=== PATIENT | male | born 1985 | race Caucasian/White ===

== ENCOUNTER 2017-09-20 16:26 | Emergency (ER) | payer OTHER ==
--- NOTE | 2017-09-20 16:30 | EDM.PDOC ---
ED HPI GENERAL MEDICAL PROBLEM - General Stated Complaint: PT FELL AT WORK Time Seen by Provider: 09/20/17 16:28 - History of Present Illness INITIAL COMMENTS - FREE TEXT/NARRATIVE: HISTORY AND PHYSICAL: History of present illness: Patient 31-year-old male presents status post fall proximally 1014 feet he sustained multiple abrasions contusions with a chief complaint of abrasion to his left forehead and right shoulder injury. He denies loss of consciousness denies chest or abdominal pain or trauma or other concern. Review of systems: As per history of present illness and below otherwise all systems reviewed and negative. Past medical history: As per history of present illness and as reviewed below otherwise noncontributory. Surgical history: As per history of present illness and as reviewed below otherwise noncontributory. Social history: No reported history of drug or alcohol abuse. Family history: As per history of present illness and as reviewed below otherwise noncontributory. Physical exam: HEENT: Abrasion contusion with small hematoma noted left forehead, normocephalic , pupils reactive, negative for conjunctival pallor or scleral icterus, mucous membranes moist, throat clear, neck supple, nontender, trachea midline. Lungs: Clear to auscultation, breath sounds equal bilaterally, chest nontender. Heart: S1S2, regular, negative for clicks, rubs, or JVD. Abdomen: Soft, nondistended, nontender. Negative for masses or hepatosplenomegaly. Negative for costovertebral tenderness. Pelvis: Stable nontender. Genitourinary: Deferred. Rectal: Deferred. Extremities :right shoulder with pain to palpation is no crepitation or point tenderness is limited range of motion secondary to pain left knee has minor abrasion no point tenderness crepitation swelling is full range motion CMS neurovascular are unremarkable throughout otherwise Neuro: Awake, alert, oriented. Cranial nerves II through XII unremarkable. Cerebellum unremarkable. Motor and sensory unremarkable throughout. Exam nonfocal. Diagnostics: X-ray right shoulder chest CT brain Therapeutics: None Impression: #1 status post fall #2 head injury with abrasion/contusion #3 acute right shoulder number for multiple abrasions/contusions Definitive disposition and diagnosis as appropriate pending reevaluation and review of above. - Related Data Allergies Allergy/AdvReac Type Severity Reaction Status Date / Time No Known Allergies Allergy Verified 09/20/17 16:36 Home Meds: Home Meds . [No Known Home Meds] 09/20/17 [History] ED ROS GENERAL - Review of Systems Review Of Systems: ROS reveals no pertinent complaints other than HPI. ED EXAM, GENERAL - Physical Exam Exam: See Below (See dictation) Course - Vital Signs Last Recorded V/S: Last Vital Signs Temp 37.4 C 09/20/17 16:26 Pulse 94 09/20/17 16:26 Resp 18 09/20/17 16:26 BP 134/76 09/20/17 16:26 Pulse Ox 98 09/20/17 16:26 - Orders/Labs/Meds Orders: Active Orders 24 hr Category Date Time Status Chest 1V Frontal [CR] Routine Exams 09/20/17 Taken Head wo Cont [CT] Routine Exams 09/20/17 Taken Shoulder Comp Rt [CR] Routine Exams 09/20/17 Taken Departure - Departure Time of Disposition: 17:51 Disposition: Home, Self-Care 01 Condition: Good Clinical Impression: Contusion, Fall, Head injury, Shoulder injury - Discharge Information Additional Instructions: The following information is given to patients seen in the emergency department who are being discharged to home. This information is to outline your options for follow-up care. We provide all patients seen in our emergency department with a follow-up referral. The need for follow-up, as well as the timing and circumstances, are variable depending upon the specifics of your emergency department visit. If you don't have a primary care physician on staff, we will provide you with a referral. We always advise you to contact your personal physician following an emergency department visit to inform them of the circumstance of the visit and for follow-up with them and/or the need for any referrals to a consulting specialist. The emergency department will also refer you to a specialist when appropriate. This referral assures that you have the opportunity for followup care with a specialist. All of these measure are taken in an effort to provide you with optimal care, which includes your followup. Under all circumstances we always encourage you to contact your private physician who remains a resource for coordinating your care. When calling for followup care, please make the office aware that this follow-up is from your recent emergency room visit. If for any reason you are refused follow-up, please contact the [facility] emergency department at and asked to speak to the emergency department charge nurse. Sling as directed Motrin/Tylenol as directed follow-up primary medical doctor return as needed as discussed
--- NOTE | 2017-09-22 11:48 | CT ---
EXAM DATE: 09/20/17 PATIENT'S AGE: 31 Patient: LEDA ROUSE Facility: [place], [place] Site . Site : 1985 Study: CT Head [id number]/21/2018 4:51:45 PM Ordering Physician: Doctor Moody Final Report: INDICATION: Fall from greater than 10 feet. TECHNIQUE: CT head without IV contrast. FINDINGS: Mild focal soft tissue swelling and hematoma in the frontal scalp bilaterally in 2 locations. No skull fracture. Minimal mucosal thickening in the upper left maxillary sinus. No intracranial hemorrhage, edema, or mass-effect. Venous sinuses intracranially are denser than typical possibly related to dehydration. Minimal cerebellar atrophy. Remainder negative. IMPRESSION: 1. No acute intracranial disease. 2. Bilateral areas of soft tissue swelling and mild hematoma in the frontal scalp. Please note that all CT scans at this facility use dose modulation, iterative reconstruction, and/or weight-based dosing when appropriate to reduce radiation dose to as low as reasonably achievable. Dictated by Vijay Pitts MD @ Sep 20 2017 4:55PM (Electronic Signature) Report Signed by Proxy. [facility]
--- NOTE | 2017-09-22 11:49 | CR ---
EXAM DATE: 09/20/17 PATIENT'S AGE: 31 Patient: LEDA ROUSE Facility: [place], [place] Site . 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 TECHNIQUE: AP portable chest x-ray. FINDINGS: Heart size normal. Mediastinum normal. Lungs clear without infiltrate. Subtle irregularity with possible lucency involving the left 11th and 12th ribs posteriorly may be artifactual however if there is concern for rib fractures dedicated rib views could be performed if there is concern in this region. Remainder negative. Dictated by Vijay Pitts MD @ Sep 20 2017 5:00PM (Electronic Signature) Report Signed by Proxy. [facility]
--- NOTE | 2017-09-22 11:50 | CR ---
EXAM DATE: 09/20/17 PATIENT'S AGE: 31 Patient: LEAD ROUSE Facility: [place], [place] Site . 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 FINDINGS: No fracture or dislocation in right shoulder. Cannot exclude some soft tissue swelling in the right shoulder laterally. Remainder negative. Dictated by Vijay Pitts MD @ Sep 20 2017 5:03PM (Electronic Signature) Report Signed by Proxy. [facility]
== END 2017-09-20 18:31 | disposition home or self-care (01) ==
LOC: MW.ED 16:26
DX: S00.83XA Contusion of other part of head, initial encounter (principal); S80.02XA Contusion of left knee, initial encounter; S80.01XA Contusion of right knee, initial encounter; S49.91XA Unspecified injury of right shoulder and upper arm, initial encounter; W19.XXXA Unspecified fall, initial encounter
CPT/HCPCS: 70450; 71045; 73030; 93005; 99284; A4566